=== PATIENT | female | born 1955 | race Caucasian/White ===

== ENCOUNTER 2020-01-22 22:04 | Emergency (ER) | payer MEDICARE, MEDICAID ==
[~2020-01-22] VITALS: Ht 162.6 cm; Wt 62.8 kg
[2020-01-22] MEDS ORDERED: AMOXICILLIN 500 MG CAPSULE ONE (22:46)
[2020-01-22] MEDS ORDERED: DEXAMETHASONE 4 MG TABLET ONE (22:46)
[2020-01-22] MEDS ORDERED: PLEASE ENTER ALLERGIES MC SCH (23:00)
[2020-01-22] MEDS ORDERED: AMOXICILLIN 500 MG CAPSULE PO ONE (23:00)
[2020-01-22] MEDS ORDERED: DEXAMETHASONE 4 MG TABLET PO ONE (23:00)
[2020-01-22 23:28] VITALS: BP 152/98
[2020-01-24] MEDS ORDERED: FLUT1DIS3 INH (03:58)
[2020-01-24] MEDS ORDERED: MULT-252 PO (03:58)
== END 2020-01-22 23:30 | disposition home or self-care (01) ==
LOC: ED 22:49
DX: J02.0 Streptococcal pharyngitis (principal); R13.10 Dysphagia, unspecified; F17.210 Nicotine dependence, cigarettes, uncomplicated; Z90.89 Acquired absence of other organs
CPT/HCPCS: 87081; 87880; 99283; 99406

== ENCOUNTER 2020-03-06 06:14 | Emergency (ER) | payer MEDICARE, MEDICAID ==
[~2020-03-06] VITALS: Ht 160 cm; Wt 62.2 kg
[~2020-03-06 06:14] MED LIST: FLUT1DIS3 INH; MULT-252 PO; NYST1000 PO
[2020-03-06 06:51] LABS: BASOPHILS % (AUTO) 1 % (0-1); EOSINOPHILS % (AUTO) 5 % (1-7); LYMPHOCYTES % (AUTO) 46 % (22-44); MEAN CORPUSCULAR HEMOGLOBIN 31.7 pg (27.0-34.8); MEAN CORPUSCULAR HGB CONC 33.5 g/dL (32.4-35.8); MEAN PLATELET VOLUME 8.2 fL (7.4-10.4); MONOCYTES % (AUTO) 9 % (2-9); NEUTROPHILS % (AUTO) 40 % (42-75); PLATELET COUNT 196 x10^3/uL (130-400); RED BLOOD COUNT 4.82 x10^6/uL (3.82-5.3); RED CELL DISTRIBUTION WIDTH 15.2 % (9.6-15.2)
[2020-03-06 06:58] LABS: ALBUMIN 3.5 g/dL (3.4-5.0); ANION GAP 5 mmol/L (5-15); CALCIUM 9.2 mg/dL (8.5-10.1); CHLORIDE 111 mmol/L (98-107)
[2020-03-06] MEDS ORDERED: SODIUM CHLORIDE FLUSH 10ML SYR IVF ONE (07:00)
[2020-03-06] MEDS ORDERED: ONDANSETRON 2MG/ML, 2ML IVPush ONE (07:00)
[2020-03-06 07:02] LABS: ALANINE AMINOTRANSFERASE 102 U/L (12-78); ALKALINE PHOSPHATASE 126 U/L (45-117); BILIRUBIN,TOTAL 0.5 mg/dL (0.2-1.0); CREATININE 0.88 mg/dL (0.55-1.02); TOTAL PROTEIN 7.8 g/dL (6.4-8.2)
[2020-03-06] MEDS ORDERED: ONDANSETRON 2MG/ML, 2ML ONE (07:08)
[2020-03-06] MEDS ORDERED: MORPHINE SULFATE 4 MG/ML, 1ML ONE ×3 (07:08→10:05)
[2020-03-06] MEDS: MORPHINE SULFATE 4 MG/ML, 1ML IVPush PRN ×2 (07:10→07:46)
--- NOTE | 2020-03-06 07:21 | NUR ---
PT C/O RIGHT ABD AND BACK PAIN. PT STATES IT STARTED 3 DAYS AGO. PT ALSO STATES FREQUENT URGE TO URINATE BUT DOES NOT PRODUCE MUCH URINE. PT ALSO C/O PAIN TO VAGINAL AREA AND STATES SHE IS SWOLLEN DOWN THERE. PT MEDICATED PER JUL.
--- NOTE | 2020-03-06 07:32 | NUR ---
OFF FLOOR TO CT
[2020-03-06 07:42] LABS: MD SCAN
[2020-03-06 07:48] LABS: MICROSCOPIC INDICATED
[2020-03-06] MEDS ORDERED: KETOROLAC 30 MG/1 ML IVPush ONE (08:30)
[2020-03-06] MEDS ORDERED: KETOROLAC 30 MG/1 ML ONE (08:37)
--- NOTE | 2020-03-06 09:05 | NUR ---
STRAIGHT CATH OBTAINED WITH 15 ML DRAINED. PT STATES SHE STILL FEELS THE URGE TO GO AND ABD PAIN IS STILL A 10/10 AFTER MEDICATION PER MAR.
[2020-03-06 09:19] LABS: MICROSCOPIC AUTO
--- NOTE | 2020-03-06 09:40 | NUR ---
PT RESTING WITH EYES CLOSED. EVEN CHEST RISE AND FALL NOTED.
[2020-03-06] MEDS ORDERED: MORPHINE SULFATE 4 MG/ML, 1ML IVPush PRN (10:00)
[2020-03-06 10:07] VITALS: BP 148/81
--- NOTE | 2020-03-06 10:57 | NUR ---
PT REC'VD ED DISCHARGE AND INSTRUCTIONS. PT STATED SHE HAD NO QUESTIONS. PT AMBULATED TO DC DESK, STEADY GAIT.
== END 2020-03-06 11:05 | disposition home or self-care (01) ==
LOC: ED 07:19
DX: N23 Unspecified renal colic (principal); I10 Essential (primary) hypertension
CPT/HCPCS: 36415; 74176; 80053; 81001; 83690; 85025; 87086; 96374; 96375; 96376; 99284; J1885; J2270; J2405

== ENCOUNTER 2020-03-08 01:02 | Inpatient (IN) | payer MEDICARE, MEDICAID ==
[~2020-03-08] VITALS: Ht 160 cm; Wt 61.8 kg
[2020-03-08] MEDS ORDERED: HYDROmorphone 1 MG/ML, 1ML INJ ONE ×3 (01:10→17:54)
[2020-03-08] MEDS ORDERED: KETOROLAC 30 MG/1 ML ONE (01:10)
[2020-03-08] MEDS ORDERED: ONDANSETRON 2MG/ML, 2ML ONE ×2 (01:11→16:11)
[2020-03-08] MEDS: HYDROmorphone 2 MG/ML, 1ML IVPush PRN ×2 (01:15→03:07)
--- NOTE | 2020-03-08 01:15 | NUR ---
patient arrived writhing in pain. given 150 mcg fentanyl and 4 mg Morphine OSTR[employer]. c/o right flank pain radiates to RLQ. states having trouble urinating.
--- NOTE | 2020-03-08 01:17 | NUR ---
patient medicated for pain and nausea. still moaning. renner placement per ERP.
[2020-03-08 01:29] LABS: BASOPHILS % (AUTO) 1 % (0-1); EOSINOPHILS % (AUTO) 4 % (1-7); LYMPHOCYTES % (AUTO) 26 % (22-44); MEAN CORPUSCULAR HEMOGLOBIN 31.6 pg (27.0-34.8); MEAN PLATELET VOLUME 8.4 fL (7.4-10.4); MONOCYTES % (AUTO) 7 % (2-9); NEUTROPHILS % (AUTO) 62 % (42-75); PLATELET COUNT 177 x10^3/uL (130-400); RED BLOOD COUNT 5.11 x10^6/uL (3.82-5.3); RED CELL DISTRIBUTION WIDTH 14.9 % (9.6-15.2)
[2020-03-08] MEDS ORDERED: SODIUM CHLORIDE FLUSH 10ML SYR IVF ONE (01:30)
[2020-03-08] MEDS ORDERED: ONDANSETRON 2MG/ML, 2ML IVPush ONE (01:30)
[2020-03-08] MEDS ORDERED: KETOROLAC 30 MG/1 ML IVPush ONE (01:30)
[2020-03-08] MEDS ORDERED: SODIUM CHLORIDE 0.9% 1,000 ML IV ONE (01:30)
[2020-03-08 01:37] LABS: ALANINE AMINOTRANSFERASE 94 U/L (12-78); ALBUMIN 3.4 g/dL (3.4-5.0); ANION GAP 6 mmol/L (5-15); CALCIUM 9.2 mg/dL (8.5-10.1); CHLORIDE 109 mmol/L (98-107)
[2020-03-08 01:40] LABS: ALKALINE PHOSPHATASE 124 U/L (45-117); BILIRUBIN,TOTAL 1.2 mg/dL (0.2-1.0); TOTAL PROTEIN 7.8 g/dL (6.4-8.2)
--- NOTE | 2020-03-08 01:42 | NUR ---
renner placed with small amount of urine output. ice chip provided at requested. Ultrasound notified.
--- NOTE | 2020-03-08 01:46 | NUR ---
patient to Ultrasound.
[2020-03-08 01:51] LABS: MICROSCOPIC INDICATED
[2020-03-08] MEDS ORDERED: LORazepam 2 MG/ML, 1ML IVPush ONE (02:00)
--- NOTE | 2020-03-08 02:05 | NUR ---
back from Ultrasound. awaiting result.
[2020-03-08 02:06] LABS: AMPHETAMINE SCREEN, URINE Positive (Negative); BARBITURATE SCREEN, URINE Negative (Negative); BENZODIAZEPINE SCREEN, URINE Negative (Negative); CANNABINOID SCREEN, URINE Negative (Negative); COCAINE SCREEN, URINE Negative (Negative); METHADONE SCREEN, URINE Negative (Negative); OPIATE SCREEN, URINE Positive (Negative)
[2020-03-08 02:28] LABS: MD SCAN
--- NOTE | 2020-03-08 02:59 | NUR ---
all labs and ultrasound resulted. chart up for MD to re-eval.
--- NOTE | 2020-03-08 03:08 | NUR ---
re-medicated for pain. warm blanket provided.
--- NOTE | 2020-03-08 04:16 | NUR ---
ERP on the phone with urology.
--- NOTE | 2020-03-08 04:20 | NUR ---
patient for admit for pain control.
[2020-03-08] MEDS ORDERED: LISI-170 PO (04:39)
--- NOTE | 2020-03-08 04:39 | NUR ---
patient emotional and crying without apparent reason. covid sample obtained and sent to lab.
--- NOTE | 2020-03-08 04:41 | NUR ---
remove renner catheter per ERP verbal order. renner removed and explained to patient the reason.
[2020-03-08] MEDS ORDERED: SODIUM CHLORIDE 0.9% 1,000 ML IV SCH (05:00)
[2020-03-08] MEDS ORDERED: morphine SULFATE 10 MG/ML, 1ML IVPush PRN (05:00)
[2020-03-08] MEDS ORDERED: DOCUSATE 100 MG CAPSULE PO PRN (05:00)
--- NOTE | 2020-03-08 05:08 | NUR ---
Dr. Arthur at bedside.
--- NOTE | 2020-03-08 05:41 | NUR ---
bed assigned. report to VOLODYMYR Guerra.
[2020-03-08] MEDS: HEPARIN 5,000 UNITS/ML, 1ML SQ SCH ×3 (06:33→21:54)
[2020-03-08 08:04] VITALS: BP 159/79
[2020-03-08] MEDS: FLUTICASONE/VILANTEROL 200-25MCG/INH INH SCH (09:00)
[2020-03-08] MEDS: ONDANSETRON 2MG/ML, 2ML IVPush PRN ×2 (09:58→18:33)
[2020-03-08] MEDS: LISINOPRIL 20 MG TABLET PO SCH (09:58)
[2020-03-08] MEDS: KETOROLAC 30 MG/1 ML IV PRN ×2 (12:19→18:47)
[2020-03-08 13:02] VITALS: BP 153/94
[2020-03-08] MEDS ORDERED: CHLORHEXIDINE 15 ML UDC MM ONE (15:11)
[2020-03-08] MEDS ORDERED: QUETIAPINE 25MG TABLET PO PRN (15:30)
[2020-03-08] MEDS ORDERED: MIDAZOLAM 1 MG/ML, 2ML ONE (15:35)
[2020-03-08] MEDS ORDERED: FENTANYL PF 250 MCG/5ML ONE (15:35)
[2020-03-08] MEDS ORDERED: PROPOFOL 50 ML ONE (15:35)
[2020-03-08] MEDS ORDERED: CEFAZOLIN 1,000 MG ONE (16:11)
[2020-03-08] MEDS ORDERED: PROPOFOL 10 MG/ML, 20ML ONE (16:11)
[2020-03-08] MEDS ORDERED: DEXAMETHASONE 4 MG/ML, 1ML ONE (16:11)
[2020-03-08] MEDS ORDERED: PROPOFOL 10 MG/ML, 50ML ONE (16:11)
[2020-03-08] MEDS ORDERED: FENTANYL PF 100 MCG/2ML ONE (17:22)
[2020-03-08] MEDS ORDERED: OXYcodone 5 MG/5 ML ORAL.SOL UDC ONE ×2 (17:22→17:35)
[2020-03-08] MEDS: FENTANYL PF 100 MCG/2ML IV PRN ×2 (17:23→17:33)
[2020-03-08] MEDS ORDERED: EPHEDRINE 50 MG/ML, 1ML IVPush PRN (17:30)
[2020-03-08] MEDS ORDERED: MEPERIDINE/PF 25MG/0.5ML IVPush PRN (17:30)
[2020-03-08] MEDS ORDERED: LABETALOL 5MG/ML, 20ML IV PRN (17:30)
[2020-03-08] MEDS ORDERED: EPHEDRINE 50 MG/ML, 1ML IM PRN (17:30)
[2020-03-08] MEDS ORDERED: OXYcodone 5 MG/5 ML ORAL.SOL UDC PO PRN (17:30)
[2020-03-08] MEDS ORDERED: ACETAMINOPHEN 325 MG TABLET PO PRN (17:30)
[2020-03-08] MEDS ORDERED: PROMETHAZINE 25 MG/ML, 1ML IVPush PRN (17:30)
[2020-03-08] MEDS ORDERED: HYDROmorphone 1 MG/ML, 1ML INJ IVPush PRN (17:30)
[2020-03-08] MEDS ORDERED: DIAZEPAM 5 MG/ML, 2ML IVPush PRN (17:30)
[2020-03-08] MEDS ORDERED: DIPHENHYDRAMINE 50 MG/ML, 1ML IVPush PRN (17:30)
[2020-03-08] MEDS ORDERED: ONDANSETRON 2MG/ML, 2ML IVPush PRN (17:30)
[2020-03-08] MEDS ORDERED: KETOROLAC 30 MG/1 ML IVPush PRN (17:30)
[2020-03-08 18:40] VITALS: BP 183/84
[2020-03-08 22:05] VITALS: BP 148/81
[2020-03-08] MEDS: HYDROcodone/APAP 5/325 TABLET PO PRN (22:16)
[2020-03-09 00:59] VITALS: BP 144/84
[2020-03-09] MEDS: HEPARIN 5,000 UNITS/ML, 1ML SQ SCH ×2 (05:33→13:00)
[2020-03-09] MEDS: HYDROcodone/APAP 5/325 TABLET PO PRN (05:34)
[2020-03-09 05:59] LABS: BASOPHILS % (AUTO) 1 % (0-1); EOSINOPHILS % (AUTO) 0 % (1-7); LYMPHOCYTES % (AUTO) 22 % (22-44); MEAN CORPUSCULAR HEMOGLOBIN 31.7 pg (27.0-34.8); MEAN PLATELET VOLUME 8.6 fL (7.4-10.4); MONOCYTES % (AUTO) 5 % (2-9); NEUTROPHILS % (AUTO) 73 % (42-75); PLATELET COUNT 177 x10^3/uL (130-400); RED BLOOD COUNT 4.49 x10^6/uL (3.82-5.3); RED CELL DISTRIBUTION WIDTH 14.9 % (9.6-15.2)
[2020-03-09 06:08] LABS: ANION GAP 3 mmol/L (5-15); CALCIUM 8.5 mg/dL (8.5-10.1); CHLORIDE 110 mmol/L (98-107); CREATININE 0.74 mg/dL (0.55-1.02)
[2020-03-09 06:13] LABS: MD NO
[2020-03-09 07:31] VITALS: BP 118/74
[2020-03-09] MEDS: FLUTICASONE/VILANTEROL 200-25MCG/INH INH SCH (09:00)
[2020-03-09] MEDS: LISINOPRIL 20 MG TABLET PO SCH (09:30)
[2020-03-09] MEDS: KETOROLAC 30 MG/1 ML IV PRN (11:09)
[2020-03-09] MEDS ORDERED: PROM25TA10 PO (11:58)
[2020-03-09] MEDS ORDERED: HYDR-3237 PO (11:58)
[2020-03-09] MEDS ORDERED: TAMS-11 PO (11:58)
[2020-03-09] MEDS ORDERED: CIPR250T27 PO (11:58)
[2020-03-09] MEDS: ONDANSETRON 2MG/ML, 2ML IVPush PRN (15:04)
[2020-03-09 15:09] VITALS: BP 146/78
== END 2020-03-09 16:41 | disposition home or self-care (01) | DRG 661 ==
LOC: ED 04:48 → EDIP 04:50 → 3N 07:18
PROVIDERS: ADMIT Family Medicine; ATTEND Internal Medicine
PROC: 0TB68ZZ Excision of Right Ureter, Via Natural or Artificial Opening Endoscopic (ICD-10-PCS; 2020-03-08)
PROC: 0TC68ZZ Extirpation of Matter from Right Ureter, Via Natural or Artificial Opening Endoscopic (ICD-10-PCS; 2020-03-08)
PROC: 0T768DZ Dilation of Right Ureter with Intraluminal Device, Via Natural or Artificial Opening Endoscopic (ICD-10-PCS; principal; 2020-03-08 15:30)
DX: N13.2 Hydronephrosis with renal and ureteral calculous obstruction (principal); I10 Essential (primary) hypertension; Z20.828 Contact with and (suspected) exposure to other viral communicable diseases; F15.10 Other stimulant abuse, uncomplicated; Z90.710 Acquired absence of both cervix and uterus
CPT/HCPCS: 36415; 76770; 80048; 80053; 80307; 81001; 82360; 83690; 85025; 87086; 87635; 88300; 93005; 94640; 96361; 96374; 96375; 99285; G0378; J0690; J1100; J1170; J1644; J1885; J2250; J2405; J2704; J3010; C1769; C2617; J7030

== ENCOUNTER 2020-11-14 22:16 | Emergency (ER) | payer MEDICARE, MEDICAID ==
[~2020-11-14] VITALS: Ht 160 cm; Wt 62.2 kg
[~2020-11-14 22:16] MED LIST changes: +CIPR250T27 PO; +HYDR-3237 PO; +LISI-170 PO; +PROM25TA10 PO; +TAMS-11 PO
[2020-11-14 22:21] VITALS: BP 151/99
[2020-11-15] MEDS ORDERED: HYDROcodone/APAP 5/325 TABLET PO ONE (00:30)
[2020-11-15] MEDS ORDERED: HYDROcodone/APAP 5/325 TABLET ONE (00:53)
--- NOTE | 2020-11-15 01:18 | NUR ---
PT REFUSED TO STAT FOR DC VITALS, PT REPORTS SHE WANTS TO LEAVE HER SISTER IS HERE FOR HER RIDE. PT LEFT.
== END 2020-11-15 01:21 ==
LOC: ED 22:21
DX: S86.911A Strain of unspecified muscle(s) and tendon(s) at lower leg level, right leg, initial encounter (principal); S96.911A Strain of unspecified muscle and tendon at ankle and foot level, right foot, initial encounter; I10 Essential (primary) hypertension; X58.XXXA Exposure to other specified factors, initial encounter; Y93.89 Activity, other specified; Y92.89 Other specified places as the place of occurrence of the external cause; Y99.8 Other external cause status
CPT/HCPCS: 99283